=== PATIENT | female | born 1990 | race Caucasian/White ===

== ENCOUNTER 2018-01-20 05:33 | Day surgery (SDC) | payer BC ==
--- NOTE | 2018-01-19 15:30 | PDGENHP ---
History and Physical History and Physical: Assessment and Plan: 1. Endometriosis determined by laparoscopy Deepa has laparoscopic proven endometriosis, which was inadequately treated based on her surgeons operative report. On my exam today. I am concerned she has dementia as a 7 both the anterior and posterior cul-de-sac, as well as both uterosacral ligaments, with a likely nodular area on the distal left uterosacral ligament. I am concerned she has is small. Rectovaginal nodule of endometriosis, which may be contributing to her dyschezia. She is scheduled for robotic excision of all lesions of endometriosis. She has had some episodic right shoulder pain, which prompted her initial gastroenterology evaluation. As a result, I will look for lesions of endometriosis on the posterior diaphragm, which will be excised. Given her rectovaginal nodule, and bowel symptoms, I would like her to do an enema tonight and repeat it first thing in the morning to help with identification of any rectal lesions, which may be scared by hard stool. The risks, benefits, and alternatives were presented, and informed consent was obtained. 2. Dysmenorrhea 3. Dyspareunia, female 4. Dyschezia Subjective: Patient ID: Deepa Martin is a 27 y.o. female who presents to [facility] for endometriosis. HPI Deepa Martin presents for a preoperative visit. She has a long history of endometriosis. I performed a laparoscopy on her about 2 years ago. She is scheduled for a robotic excision of endometriosis.. The risks, benefits, and alternatives were presented and informed consent was obtained. 40 minutes of this 40 minute appointment was spent counceling, reviewing the procedure in detail, and discussing the preoperative and postoperative instructions. Below is a copy of our prior visit note. Deepa is a 24-year-old, one, para zero, woman who lives in [place]. She located mi through [facility]. She has been suffering from dysmenorrhea since the age of 18. Her cycles are somewhat irregular about once per month. She will bleed a total of 7 days. The first 4 days are very heavy. Previously, she used tampons, but now she finds them uncomfortable. She uses a maxi pad and has to change it every 1-2 hours. She develops incapacitating pain starting about one week before her menstrual flow. It will continue throughout her flow. The worst days of pain are the first three days of her menses. She feels a sharp twisting-type pain, which is worse in the right lower quadrant. It will radiate to her right low back. The pain often will radiate down her right leg to her knee. She never has pain down her left leg. However, she can have left lower quadrant pain. She almost feels as though there is a mass in her right lower back. She feels a pinching sensation in the upper vagina and pelvis. She finds intercourse extremely uncomfortable. About the only position that she finds acceptable is when she is lying on her right side. She has problems with both constipation and diarrhea. Her diarrhea is present during her menses. She will have severe cramping sensation in her stomach area and has severe pain when passing bowel movements. She has a stool in front of her toilet. She places her feet elevated on a stool to help with the discomfort. She often has mucousy stool with her diarrhea. She has tried Imodium which helps some. In 2011, she was thought to have a ruptured appendicitis. Apparently, the surgeon found a ruptured ovarian cyst. The appendix was removed. The operative or pathology report apparently describes lesions on the appendix. Prior to that she had a ruptured right tubal requiring a salpingectomy. In March of 2014 she underwent a laparoscopy and was found to have endometriosis. The lesions were apparently ablated. However, there were areas of endometriosis on structures for which the surgeon did not feel comfortable treating. She had a second laparoscopy in November of 2014 with essentially the same findings and similar treatment. She has seen multiple physicians and specialists. She has seen gastroenterology for many years. She initially was thought to have irritable bowel syndrome. She tried various medications with only minimal benefit. She had a normal colonoscopy in 2009. She does have a history of multiple kidney stones. She apparently has multiple stones in the renal collecting systems. She had a intravenous pyelogram, which was reportedly normal. She has undergone a prior ureteroscopy for removal of a ureteral stone. She has been seen at an infertility clinic. She apparently has a very elevated anti-mllerian hormone at 11.4, which apparently is suggestive of polycystic ovarian syndrome. She has decided to postpone any further fertility treatment until treating her endometriosis. In 2014 she was referred to a chronic pain specialist. He performed a hypogastric plexus block. She felt relief for 3 or 4 days. The pain then returned. The physician then repeated the block several weeks later. Unfortunately, she again only had several days of relief. Her last ultrasound was around April. She has been told she has hemorrhagic cysts, as well as some fluid-filled cysts. Apparently, a tubal perfusion study was performed with both of her laparoscopies in 2014. She apparently has a patent remaining left tube. I have reviewed her extensive medical records, including her operative notes, colonoscopy report, ureteroscopy, and hypogastric plexus blocks by her pain specialist. She underwent an MRI of the pelvis. Last week. No intraluminal lesions were seen within the rectum. She has a hemorrhagic right ovarian cyst. She feels as though she has a horrible quality of life. She has been unable to work recently because she frequently will miss work secondary to pain. 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 She is 5 feet 3 inches tall and weighs 145 pounds. Past medical history: Kidney stones, asthma. Surgical history: Laparoscopic salpingectomy for tubal , laparoscopic appendectomy, 2 laparoscopic ablations of endometriosis, tonsillectomy, ureteroscopy. Medications: Shafter 10 mg, Symbicort inhaler. Allergies: Peanuts causes anaphylaxis. No medication allergies. Social history: She smokes 5 cigarettes per day. She is trying to quit this month. She has been since May of 2014. She and her have never used contraception. She will be getting her degree this January in psychology and criminal justice. She is raising her 's son. He will be with his mother through mid September. PastMedicalHistory Past Medical History: Diagnosis Date Asthma Endometriosis Hiatal hernia Irritable bowel syndrome (IBS) PCOS (polycystic ovarian syndrome) Routine general medical examination at a health care facility PastSurgicalHistory Past Surgical History: Procedure Laterality Date APPENDECTOMY 2012 ECTOPIC SURGERY 2013 ENDOMETRIAL ABLATION 2015 KIDNEY STONE SURGERY 2010 TONSILLECTOMY AND ADENOIDECTOMY 2005 CURRENT MEDICATIONS: Current Outpatient Medications Medication Sig budesonide-formoterol (SYMBICORT) 160-4.5 mcg/actuation inhaler Inhale 2 puffs into the lungs daily. diazePAM (VALIUM) 5 mg tablet Take 1 tablet by mouth 2 times daily as needed for Muscle Spasm. gabapentin (NEURONTIN) 100 mg capsule Take 3 capsules by mouth 3 times daily for Neuropathic Pain. ibuprofen (ADVIL,MOTRIN) 200 mg tablet Take with food. norethindrone-eth est-iron (LOESTRIN 24 FE) 1 mg-20 mcg (24)/75 mg (4) per tablet Take one pill daily. Discard placebo pills and start next pack immediately to take hormones in a continuous fashion. oxyCODONE-acetaminophen (PERCOCET) 10-325 mg Tb Take 1 tablet by mouth every 8 hours as needed for endometriosis. This med has acetaminophen (APAP). No current facility-administered medications for this visit. ALLERGIES: Peanut I have reviewed, verified and agree with the past medical, surgical, , family, social and ROS history as documented by the RN today. Review of Systems Objective: Vital Signs: There were no vitals taken for this visit. Physical Exam Gen: This is an alert, well developed woman in no distress. Neuro: She moves all extremities. Psych: She is appropriate, oriented, with normal affect. Neck: No thyroid enlargement, adenopathy, or tenderness. Lungs: Clear to ascultation, no wheezes or rales. Heart: Regular rate and rhythm without obvious murmurs. Abdomen: Soft, non-tender, without guarding, rebound, or masses. Extremities: No edema or cyanosis. Pelvic: Normal external genitalia. Non-gaping introitus, vagina without discharge, adequately estrogenized, no significant prolapse. Cervix without lesions or discharge. Uterus normal sized, anterior and relatively fixed. She has tenderness of the anterior cul-de-sac, which causes a pinching sensation. She has significant tenderness on the posterior cervix. Both uterosacral ligaments are exquisitely tender. She has a nodular area on the distal left uterosacral ligament. The adnexa are tender without enlargement. She has a small 3 mm tender nodular area in the midline of the rectovaginal septum, approximately 2 cm distal to the cul-de-sac. The patients pain was significantly exacerbated by the pelvic exam. DATA: Radiology study reports viewed and are pertinent for as noted above. Radiology studies independently visualized and are pertinent for as noted above. I have reviewed patient's outside medical records. Summary findings include as noted above. TIME/COMMUNICATION: I personally spent a total of 120 minutes. Of that 110 minutes was counseling/ coordination of patient's care. See my note above for details. Jonathan Santos MD Board Certified Female Pelvic Medicine and Reconstructive Surgery Director of Minimally Invasive Gynecologic Surgery, [facility] in Minimally Invasive Gynecologic Surgery Designee
[2018-01-20] MEDS ORDERED: GABAPENTIN 300 MG CAP PO ONE (06:03)
[2018-01-20] MEDS ORDERED: PHENAZOPYRIDINE HCL 200 MG TAB PO ONE (06:03)
[2018-01-20] MEDS ORDERED: ACETAMINOPHEN 500 MG TAB PO ONE (06:03)
[2018-01-20] MEDS ORDERED: ceFAZolin 2 GM/DEXTROSE 100 ML IV ONE (06:03)
[2018-01-20] MEDS ORDERED: LR 1,000 ML IV ONE (06:04)
--- NOTE | 2018-01-20 06:46 | PDANEPAE ---
ANE Past Medical History - Cardiovascular History Hx Hypertension: No Hx Arrhythmias: No Hx Chest Pain: No Hx Coronary Artery / Peripheral Vascular Disease: No Hx CHF / Valvular Disease: No Hx Palpitations: No - Pulmonary History Hx COPD: No Hx Asthma/Reactive Airway Disease: Yes Hx Recent Upper Respiratory Infection: No Hx Oxygen in Use at Home: No Hx Sleep Apnea: No Sleep Apnea Screening Result - Last Documented: Negative Pulmonary History Comment: uses inhaler prn- instructed pt to bring - Neurologic History Hx Cerebrovascular Accident: No Hx Seizures: No Hx Dementia: No Neurologic History Comment: headaches - Endocrine History Hx Diabetes: No - Renal History Hx Renal Disorders: Yes Renal History Comment: kidney stones. bladder issues currently - Liver History Hx Hepatic Disorders: No - Neurological & Psychiatric Hx Hx Neurological and Psychiatric Disorders: Yes Neurological / Psychiatric History Comment: anxiety - Cancer History Hx Cancer: No - Congenital Disorder History Hx Congenital Disorders: No - GI History Hx Gastrointestinal Disorders: Yes Gastrointestinal History Comment: abd cramping/ bloating. IBS type symptoms. painful bm's. diarrhea - Other Health History Other Health History: wears glasses. occ rashes when overheated, two spots that never go away - Chronic Pain History Chronic Pain: Yes (abd pain) - Surgical History Prior Surgeries: excision of endometriosis. laparoscopic ablations. R salpingectomy d/t ectopic . appy. tonsillectomy. kidney stone extraction ANE Review of Systems Review of Systems: - Exercise capacity Exercise capacity: >=4 METS METS (RN): 4 METS ANE Patient History - Allergies Allergies/Adverse Reactions: peanut Allergy (Verified 01/19/18 12:51) Anaphylaxis all NUTS Allergy (Uncoded 06/22/17 10:32) Anaphylaxis - Home Medications Home medications: home medication list seen and reviewed Home Medications: Percocet 10-325 mg Tablet 06/22/17 [Last Taken 01/20/18] Symbicort 80-4.5 Mcg Inhaler 06/22/17 [Last Taken 01/20/18] Gabapentin 01/19/18 [Last Taken 01/20/18 0500] - NPO status NPO Status: no food or drink >8 hours NPO Since - Liquids (Date): 01/18/18 NPO Since - Liquids (Time): 20:00 NPO Since - Solids (Date): 01/18/18 NPO Since - Solids (Time): 18:00 - Anes Hx Anes Hx: no prior problems (emotional on emergence) - Smoking Hx Smoking Status: Current some day smoker - Family Anes Hx Family Hx Anesthesia Complications: none ANE Labs/Vital Signs - Vital Signs Vital Signs: reviewed preoperatively; see RN documention for details Height: 158.75 cm Weight: 63.503 kg ANE Physical Exam - Airway Neck exam: FROM Mallampati Score: Class 2 Mouth exam: normal dental/mouth exam - Pulmonary Pulmonary: clear to auscultation - Cardiovascular Cardiovascular: regular rate and rhythym - ASA Status ASA Status: II
[2018-01-20] MEDS ORDERED: LIDOCAINE 1% 2 ML INJ ID PRN (06:53)
[2018-01-20] MEDS ORDERED: HYDROmorphONE/DILAUDID 2 MG/ML INJ ONE (07:01)
[2018-01-20] MEDS ORDERED: PROPOFOL 200 MG/20 ML VIAL ONE (07:01)
[2018-01-20] MEDS ORDERED: fentaNYL 100 MCG/2 ML INJ ONE ×3 (07:01→10:16)
[2018-01-20] MEDS ORDERED: MIDAZOLAM 2 MG/2 ML VIAL ONE (07:10)
--- NOTE | 2018-01-20 07:11 | PDHPUP ---
History & Physical Update H&P update statement: This history and physical update is based on an assessment of the patient which was completed after admission or registration (within 24 hours), but prior to the surgery/procedure. H&P update: H&P reviewed & patient examined, no change in patient's condition since H&P completed
[2018-01-20] MEDS ORDERED: BUPIVACAINE/EPI 0.5% 30 ML SDV ONE (07:20)
[2018-01-20] MEDS ORDERED: DEXMEDETOMIDINE HCL 400 MCG in NS 100 ML IV SCH (07:30)
[2018-01-20] MEDS ORDERED: DEXAMETHASONE 4 MG/ML VIAL ONE (07:39)
[2018-01-20] MEDS ORDERED: ROCURONIUM 50 MG/5 ML VIAL ONE (07:39)
[2018-01-20] MEDS ORDERED: ONDANSETRON 4 MG/2 ML VIAL ONE (07:39)
[2018-01-20] MEDS ORDERED: KETOROLAC 30 MG/1 ML SDV ONE (07:39)
--- NOTE | 2018-01-20 08:14 | POSTANESTH ---
Post Anesthetic Evaluation Cardiovascular Status: Normal, Stable Respiratory Status: Normal, Stable Level of Consciousness/Mental Status: Can Participate in Eval Pain Control: Adequate, Prn Tx Ordered Nausea/Vomiting Control: Adequate, Prn Tx Ordered Complications Possibly Related to Anesthesia: None Noted
[2018-01-20] MEDS ORDERED: NEOSTIGMINE METHYLSULFATE 5 MG/5 ML SYR ONE (08:33)
[2018-01-20] MEDS ORDERED: GLYCOPYRROLATE 0.2 MG/1 ML VIAL ONE ×2 (08:33→08:51)
[2018-01-20] MEDS ORDERED: NALOXONE HCL 0.4 MG/ML INJ IVP PRN (08:41)
[2018-01-20] MEDS ORDERED: LR 500 ML IV PRN (08:41)
[2018-01-20] MEDS ORDERED: MEPERIDINE 25 MG/0.5 ML AMP IVP PRN (08:41)
[2018-01-20] MEDS ORDERED: HYDROmorphONE/DILAUDID 1 MG/ML INJ IVP PRN (08:41)
[2018-01-20] MEDS ORDERED: PROMETHAZINE HCL 25 MG/ML INJ IVP PRN (08:41)
[2018-01-20] MEDS ORDERED: DIAZEPAM 5 MG/ML 1 ML SYR IVP PRN (08:41)
[2018-01-20] MEDS ORDERED: METOCLOPRAMIDE 10 MG/2 ML VIAL IVP PRN (08:41)
[2018-01-20] MEDS ORDERED: ONDANSETRON 4 MG/2 ML VIAL IVP PRN (08:41)
[2018-01-20] MEDS ORDERED: ALBUTEROL 3 ML DEYVIAL IH PRN (08:41)
[2018-01-20] MEDS ORDERED: ACETAMINOPHEN 500 MG TAB PO PRN (08:41)
[2018-01-20] MEDS ORDERED: ePHEDrine SULFATE 25 MG/5 ML SYR ONE (08:52)
--- NOTE | 2018-01-20 09:29 | POSTOPPROG ---
Post Op Note Date of Operation: 01/20/18 Surgeon: Jonathan Santos Soaker Soda Worker: Aliya Platt Anesthesia: GET(General Endotracheal) Pre-op Diagnosis: Endometriosis Post-op Diagnosis: Same Procedure: Robotic exision of endo, bilat ureterolysis and ovarianpexy Findings: Endo Inf/Abcess present in the surg proc area at time of surgery?: No EBL: Minimal Complications: None
[2018-01-20] MEDS: fentaNYL 100 MCG/2 ML INJ IVP PRN ×3 (09:34→10:19)
[2018-01-20] MEDS ORDERED: OXYCODONE/APAP 5/325 TAB ONE ×2 (10:16→11:35)
[2018-01-20] MEDS: OXYCODONE/APAP 5/325 TAB PO PRN ×2 (10:17→11:36)
--- NOTE | 2018-01-20 10:35 | GOP ---
DATE OF OPERATION: 01/20/2018 SURGEON: Jonathan Santos MD CONTENT ENGINEER: Aliya Platt CFA. ANESTHESIA: General. PREOPERATIVE DIAGNOSIS: 1. Pelvic pain. 2. Endometriosis. 3. Cyclic pelvic pain. 4. Dyschezia. 5. Voiding difficulties. POSTOPERATIVE DIAGNOSIS: 1. Pelvic pain. 2. Endometriosis. 3. Cyclic pelvic pain. 4. Dyschezia. 5. Voiding difficulties. PROCEDURE PERFORMED: 1. Robotic assisted laparoscopic excision of endometriosis in anterior and posterior cul-de-sac, barry ateral ovarian fossae. 2. Bilateral ureterolysis. 3. Bilateral ovarian pexy. 4. Cystoscopy. FINDINGS: SPECIMENS: Pelvic peritoneum with endometriosis. ESTIMATED BLOOD LOSS: Scant. DESCRIPTION OF PROCEDURE: The patient was taken to the operating room. She was identified. General anesthesia was administered and found to be adequate. She was placed in the lithotomy position and prepared and draped in normal sterile fashion. A Hulka tenaculum was placed in the uterus for manipu lation. A Maurer catheter was then placed. A 1 cm infraumbilical incision was made with a scalpel. The Veress needle with CO2 gas flowing was a dvanced into the peritoneal cavity. The abdomen was then insufflated with carbon dioxide gas. The 1 2 mm trocar followed by the laparoscope were then inserted. The upper abdomen was unremarkable. The re was no evidence of endometriosis on either diaphragm or upper abdominal bowel. Two lateral ports were placed on the right, 1 on the left under direct visualization. She then was placed in Trendelen jeanie position and the DaVinci robot docked on the left side. The instruments were then brought into the abdominal cavity under direct visualization. She had areas of recurrent endometriosis in the ant erior cul-de-sac, posterior cul-de-sac along the uterosacral ligaments as well as ovarian fossae over lying the ureters. Both ovaries were adherent to the pelvic sidewalls overlying both ureters. The lesions in the anterior cul-de-sac were excised. The ovaries were freed from their adhesions to the pelvic sidewall. The endometriosis on each ovary was treated. A bilateral ovariopexy was then p erformed by attaching each ovary to the ipsilateral round ligaments near the internal inguinal ring w ith 3-0 Vicryl Rapide suture. The lesions in the posterior cul-de-sac were excised which required ex cising most of the posterior cul-de-sac peritoneum from the distal rectum up to the cervix and latera lly to the uterosacral ligaments. A bilateral ureterolysis was then performed. The peritoneum at th e pelvic brims were incised. The ureters were gently dissected free and lateralized off the overlyin g peritoneum from the pelvic brim down to the uterine arteries. Once this was accomplished, the enti re pelvic sidewall peritoneum was completely excised. All specimens were sent to Pathology for perma nent section. The pelvis was then irrigated with sterile saline, and hemostasis was present. Severa l lesions on the uterine serosa were then treated. The robot was then undocked. The fascia was clos ed with 0 Vicryl, skin with 4-0 Monocryl. Cystoscopy was then performed given her voiding difficulties. Both ureters had vigorous jets of urin e. There was no evidence of any bladder or urethral pathology to explain her symptoms. Anesthesia w as then reversed. The patient taken the PACU awake, in stable condition.][ COMPLICATIONS: None. DISPOSITION: Patient stable to PACU. /[id number]/MODL
[2018-01-20 11:20] VITALS: BP 105/55
== END 2018-01-20 11:45 | disposition home or self-care (01) ==
LOC: FSGY 05:33
PROVIDERS: ATTEND Obstetrics & Gynecology
DX: N80.3 Endometriosis of pelvic peritoneum (principal); N80.1 Endometriosis of ovary; N94.6 Dysmenorrhea, unspecified; R10.2 Pelvic and perineal pain; N94.10 Unspecified dyspareunia; J45.909 Unspecified asthma, uncomplicated; F17.210 Nicotine dependence, cigarettes, uncomplicated; K44.9 Diaphragmatic hernia without obstruction or gangrene; K58.2 Mixed irritable bowel syndrome; E28.2 Polycystic ovarian syndrome; Z87.442 Personal history of urinary calculi
CPT/HCPCS: J0690; J1100; J1170; J1885; J2250; J2405; J2704; J2710; J3010